=== PATIENT | female | born 1965 | race Caucasian/White ===

== ENCOUNTER 2019-01-08 12:27 | Outpatient (CLI) | payer OTHER ==
[~2019-01-08 12:27] MED LIST: CHOL500045 PO; CYAN1TAB29 PO; DOCU240C31 PO; ESCI10TA10 PO; OMEG1CAP23 PO; OXYC1TAB8 PO
== END 2019-01-08 23:59 | disposition home or self-care (01) ==
LOC: CFH 12:27
PROVIDERS: ATTEND Obstetrics & Gynecology
DX: Z12.31 Encounter for screening mammogram for malignant neoplasm of breast (principal)
CPT/HCPCS: 77067